=== PATIENT | female | born 1955 | race Caucasian/White ===

== ENCOUNTER 2017-02-12 17:10 | Emergency (ER) | payer MEDICARE ==
[~2017-02-12 17:10] MED LIST: THIAMINE 100 MG TAB PO SCH
[2017-02-12] MEDS ORDERED: SODIUM CHLORIDE 0.9% 1,000 ML IV STA (17:39)
[2017-02-12] MEDS ORDERED: SODIUM CHLORIDE 0.9% 500 ML IV STA (17:39)
--- NOTE | 2017-02-12 17:42 | ED ---
General Adult HPI - General Chief complaint: Alcohol Stated complaint: ANXIETY Source: patient, RN notes reviewed Mode of arrival: EMS Limitations: no limitations - History of Present Illness Initial comments: 61-year-old female history of anxiety, depression, COPD, and alcohol abuse presents with chief complaint of alcohol ingestion and generalized weakness. Patient also reports significant dyspnea over her drinking. She does not have sonali suicidal ideation, however she does states she wants to give up. She is tried on multiple attempts to obtain from alcohol. She has called 10-15 rehab facilities but her insurance does not pay for the first several days of rehab and she does not have money to pay for this. She would like to quit alcohol but has been unable to do so on her own. No hallucinations. She is complaining of some facial numbness which is bilateral. No other complaints. No chest pain or shortness of breath. No abdominal pain. No nausea vomiting or diarrhea. - Related Data Home Medications Medication Instructions Recorded Confirmed Albuterol Inhaler [Ventolin Hfa 2 puff INHALATION RT-Q6H PRN 02/12/17 02/12/17 Inhaler] Omeprazole 20 mg PO BID 02/12/17 02/12/17 Xanax Unknown Dose 1 tab PO ONCE 02/12/17 02/12/17 Allergies Allergy/AdvReac Type Severity Reaction Status Date / Time Penicillins Allergy Itching Verified 02/12/17 18:07 codeine AdvReac Nausea & Verified 02/12/17 18:07 Vomiting Review of Systems ROS Statement: Those systems with pertinent positive or pertinent negative responses have been documented in the HPI. ROS Other: All systems not noted in ROS Statement are negative. Past Medical History Past Medical History: COPD, Hypertension Additional Past Medical History / Comment(s): alcohol abuse, kidney stones History of Any Multi-Drug Resistant Organisms: None Reported Additional Past Surgical History / Comment(s): exp lap Past Psychological History: Anxiety, Depression Smoking Status: Current every day smoker Past Alcohol Use History: Abuse, Daily, Heavy Past Drug Use History: None Reported General Exam Limitations: no limitations General appearance: alert, in no apparent distress, appears intoxicated, anxious Head exam: Present: atraumatic, normocephalic Eye exam: Present: normal appearance, PERRL ENT exam: Present: mucous membranes dry Neck exam: Present: normal inspection. Absent: tenderness, meningismus Respiratory exam: Present: normal lung sounds bilaterally. Absent: respiratory distress, wheezes Cardiovascular Exam: Present: regular rate, normal rhythm GI/Abdominal exam: Present: soft. Absent: distended, tenderness Extremities exam: Present: normal inspection, normal capillary refill. Absent: pedal edema Neurological exam: Present: alert, CN II-XII intact, other (Patient has repetitive movements of her bilateral upper extremities and lips). Absent: motor sensory deficit Psychiatric exam: Present: depressed, anxious Skin exam: Present: warm, dry, intact. Absent: cyanosis, diaphoretic Course Vital Signs 02/12/17 02/12/17 02/12/17 17:14 19:36 21:12 Temperature 97.9 F 97.7 F Pulse Rate 88 99 100 Respiratory 20 19 19 Rate Blood Pressure 136/97 145/92 119/82 O2 Sat by Pulse 99 96 97 Oximetry 02/12/17 22:18 Temperature 98.1 F Pulse Rate 93 Respiratory 19 Rate Blood Pressure 105/82 O2 Sat by Pulse 95 Oximetry - Reevaluation(s) Reevaluation #1: 02/12/17 22:24 Patient is evaluated by psychiatry, no need for inpatient psychiatric treatment for alcohol abuse at this time. Medical Decision Making - Medical Decision Making 61-year-old female with history of alcohol abuse presenting with chief complaint of bilateral facial numbness and desire to abstain from alcohol. Blood alcohol level was 42 at the time of presentation. Urinalysis was positive for benzodiazepines which the patient does admit to taking too Xanax earlier in the day. After initial evaluation patient's family arrives and is very concerned with strange movements of the patient's hands and lips. This is new today. Patient is not on psychiatric medication, she only takes Prilosec at home. According to the patient's daughter these movements are new today and she is very concerned. Neurologic exam is nonfocal, cranial nerves intact, no ataxia. Head CT is obtained, is negative for acute intracranial process. Patient's neurologic examination remains unchanged while in the emergency department. She will be placed in observation for neurology consult. She does drink heavily daily, she is placed on Ativan by [employer] POSNM scale. Diagnosis: Choreiform movements, alcohol abuse. - Lab Data Result diagrams: 02/12/17 17:15 02/12/17 17:15 Lab Results 02/12/17 02/12/17 02/12/17 Range/Units 17:15 17:15 17:15 WBC 5.5 (3.8-10.6) k/uL RBC 4.60 (3.80-5.40) m/uL Hgb 14.2 (11.4-16.0) gm/dL Hct 43.1 (34.0-46.0) % MCV 93.7 (80.0-100.0) fL MCH 30.9 (25.0-35.0) pg MCHC 33.0 (31.0-37.0) g/dL RDW 16.5 H (11.5-15.5) % Plt Count 194 (150-450) k/uL Neutrophils % 58 % Lymphocytes % 31 % Monocytes % 7 % Eosinophils % 2 % Basophils % 1 % Neutrophils # 3.2 (1.3-7.7) k/uL Lymphocytes # 1.7 (1.0-4.8) k/uL Monocytes # 0.4 (0-1.0) k/uL Eosinophils # 0.1 (0-0.7) k/uL Basophils # 0.0 (0-0.2) k/uL Anisocytosis Slight Sodium 135 L (137-145) mmol/L Potassium 4.4 (3.5-5.1) mmol/L Chloride 107 (98-107) mmol/L Carbon Dioxide 16 L (22-30) mmol/L Anion Gap 12 mmol/L BUN 5 L (7-17) mg/dL Creatinine 0.60 (0.52-1.04) mg/dL Est GFR (MDRD) Af Amer >60 (>60 ml/min/1.73 sqM) Est GFR (MDRD) Non-Af >60 (>60 ml/min/1.73 sqM) Glucose 79 (74-99) mg/dL Calcium 8.6 (8.4-10.2) mg/dL Magnesium 1.8 (1.6-2.3) mg/dL Total Bilirubin 0.5 (0.2-1.3) mg/dL AST 33 (14-36) U/L ALT 34 (9-52) U/L Alkaline Phosphatase 114 (38-126) U/L Total Protein 6.4 (6.3-8.2) g/dL Albumin 3.3 L (3.5-5.0) g/dL Urine Color Colorless Urine Appearance Clear (Clear) Urine pH 5.0 (5.0-8.0) Ur Specific [place] 1.001 (1.001-1.035) Urine Protein Negative (Negative) Urine Glucose (UA) Negative (Negative) Urine Ketones Negative (Negative) Urine Blood Negative (Negative) Urine Nitrite Negative (Negative) Urine Bilirubin Negative (Negative) Urine Urobilinogen <2.0 (<2.0) mg/dL Ur Leukocyte Esterase Negative (Negative) Urine Opiates Screen Not Detected (NotDetected) Ur Oxycodone Screen Not Detected (NotDetected) Urine Methadone Screen Not Detected (NotDetected) Ur Propoxyphene Screen Not Detected (NotDetected) Ur Barbiturates Screen Not Detected (NotDetected) U Tricyclic Antidepress Not Detected (NotDetected) Ur Phencyclidine Scrn Not Detected (NotDetected) Ur Amphetamines Screen Not Detected (NotDetected) U Methamphetamines Scrn Not Detected (NotDetected) U Benzodiazepines Scrn Detected H (NotDetected) Urine Cocaine Screen Not Detected (NotDetected) U Marijuana (THC) Screen Not Detected (NotDetected) Serum Alcohol 42 mg/dL Disposition Clinical Impression: Choreiform movements Disposition: [facility] Condition: Good Referrals: Tootie Bacon DO [Primary Care Provider] - 1-2 days Decision to Admit Reason: Admit from EC Decision Date: 02/12/17 Decision Time: 21:21
[2017-02-12 17:52] LABS: Anisocytosis Slight; Basophils % (A) 1 %; CH 32.3; CHCM 34.7; Eosinophils # (A) 0.1 k/uL (0-0.7); Eosinophils % (A) 2 %; HCT 43.1 % (34.0-46.0); HDW 3.05; HGB 14.2 gm/dL (11.4-16.0); Luc # (Auto) 0.13; Luc % (Auto) 2; Lymphocytes # (A) 1.7 k/uL (1.0-4.8); Lymphocytes % (A) 31 %; MCH 30.9 pg (25.0-35.0); MCV 93.7 fL (80.0-100.0); Mean Platelet Volume 7.4; Monocytes # (A) 0.4 k/uL (0-1.0); Monocytes % (A) 7 %; Neutrophils # (A) 3.2 k/uL (1.3-7.7); Neutrophils % (A) 58 %; RDW 16.5 % (11.5-15.5); WBC 5.5 k/uL (3.8-10.6); WBC (Perox) 5.79
[2017-02-12 17:55] LABS: Appearance,Urine Clear (Clear); Bilirubin,Urine Negative (Negative); Glucose,Urine (UA) Negative (Negative); Ketones,Urine Negative (Negative); Leukocyte Esterase,Urine Negative (Negative); Nitrite,Urine Negative (Negative); Protein,Urine Negative (Negative); Specific Gravity,Urine 1.001 (1.001-1.035); UA Billing (MACRO vs. MICRO) CHEM; Urobilinogen,Urine <2.0 mg/dL (<2.0)
[2017-02-12 18:04] LABS: ALT 34 U/L (9-52); AST 33 U/L (14-36); Alcohol 42 mg/dL; Alkaline Phosphatase 114 U/L (38-126); Anion Gap 12 mmol/L; Blood Urea Nitrogen 5 mg/dL (7-17); Calcium 8.6 mg/dL (8.4-10.2); Carbon Dioxide 16 mmol/L (22-30); Chloride 107 mmol/L (98-107); Glucose 79 mg/dL (74-99); Magnesium 1.8 mg/dL (1.6-2.3); Non-African American GFR(MDRD) >60 (>60 ml/min/1.73 sqM); Potassium 4.4 mmol/L (3.5-5.1); Sodium 135 mmol/L (137-145); Total Bilirubin 0.5 mg/dL (0.2-1.3); Total Protein 6.4 g/dL (6.3-8.2)
[2017-02-12] MEDS ORDERED: LORazepam 2 MG/ML SYRINGE IV PRN ×3 (18:14)
[2017-02-12] MEDS ORDERED: THIAMINE 100 MG/ML 2 ML VIAL IM STA (18:14)
--- NOTE | 2017-02-12 21:33 | CT ---
EXAMINATION TYPE: CT brain wo con DATE OF EXAM: 02/12/2017 COMPARISON: NONE HISTORY: Altered mental status, facial numbness. CT DLP: 1719.9 mGycm. Automated Exposure Control for Dose Reduction was Utilized. TECHNIQUE: CT scan of the head is performed without contrast. FINDINGS: There is no acute intracranial hemorrhage, mass effect, or midline shift identified. The ventricles and sulci are symmetrically prominent, compatible with age-related volume loss. Scattered areas of hypoattenuation are seen within the subcortical white matter and within the right external capsule, likely on the basis of chronic microangiopathy. Yuki bullosa are incidentally noted within the middle nasal turbinate. The globes are intact and the visualized sinuses are clear. IMPRESSION: No acute intracranial hemorrhage, mass effect, or midline shift is seen.
[2017-02-12] MEDS ORDERED: ONDANSETRON 4 MG/2 ML VIAL IVP PRN (22:20)
[2017-02-12] MEDS ORDERED: ACETAMINOPHEN TAB 325 MG TAB PO PRN (22:20)
[2017-02-12] MEDS ORDERED: NALOXONE 0.4 MG/ML 1 ML VIAL IV PRN (22:20)
[2017-02-12] MEDS ORDERED: SODIUM CHLORIDE 0.9% 1,000 ML IV SCH (22:30)
[2017-02-12] MEDS ORDERED: KETOROLAC 30 MG/ML 1 ML VIAL IVP STA (23:27)
--- NOTE | 2017-02-12 23:33 | ED ---
Medical Decision Making - Lab Data Result diagrams: 02/12/17 17:15 02/12/17 17:15 Lab Results 02/12/17 02/12/17 02/12/17 Range/Units 17:15 17:15 17:15 WBC 5.5 (3.8-10.6) k/uL RBC 4.60 (3.80-5.40) m/uL Hgb 14.2 (11.4-16.0) gm/dL Hct 43.1 (34.0-46.0) % MCV 93.7 (80.0-100.0) fL MCH 30.9 (25.0-35.0) pg MCHC 33.0 (31.0-37.0) g/dL RDW 16.5 H (11.5-15.5) % Plt Count 194 (150-450) k/uL Neutrophils % 58 % Lymphocytes % 31 % Monocytes % 7 % Eosinophils % 2 % Basophils % 1 % Neutrophils # 3.2 (1.3-7.7) k/uL Lymphocytes # 1.7 (1.0-4.8) k/uL Monocytes # 0.4 (0-1.0) k/uL Eosinophils # 0.1 (0-0.7) k/uL Basophils # 0.0 (0-0.2) k/uL Anisocytosis Slight Sodium 135 L (137-145) mmol/L Potassium 4.4 (3.5-5.1) mmol/L Chloride 107 (98-107) mmol/L Carbon Dioxide 16 L (22-30) mmol/L Anion Gap 12 mmol/L BUN 5 L (7-17) mg/dL Creatinine 0.60 (0.52-1.04) mg/dL Est GFR (MDRD) Af Amer >60 (>60 ml/min/1.73 sqM) Est GFR (MDRD) Non-Af >60 (>60 ml/min/1.73 sqM) Glucose 79 (74-99) mg/dL Calcium 8.6 (8.4-10.2) mg/dL Magnesium 1.8 (1.6-2.3) mg/dL Total Bilirubin 0.5 (0.2-1.3) mg/dL AST 33 (14-36) U/L ALT 34 (9-52) U/L Alkaline Phosphatase 114 (38-126) U/L Total Protein 6.4 (6.3-8.2) g/dL Albumin 3.3 L (3.5-5.0) g/dL Urine Color Colorless Urine Appearance Clear (Clear) Urine pH 5.0 (5.0-8.0) Ur Specific [place] 1.001 (1.001-1.035) Urine Protein Negative (Negative) Urine Glucose (UA) Negative (Negative) Urine Ketones Negative (Negative) Urine Blood Negative (Negative) Urine Nitrite Negative (Negative) Urine Bilirubin Negative (Negative) Urine Urobilinogen <2.0 (<2.0) mg/dL Ur Leukocyte Esterase Negative (Negative) Urine Opiates Screen Not Detected (NotDetected) Ur Oxycodone Screen Not Detected (NotDetected) Urine Methadone Screen Not Detected (NotDetected) Ur Propoxyphene Screen Not Detected (NotDetected) Ur Barbiturates Screen Not Detected (NotDetected) U Tricyclic Antidepress Not Detected (NotDetected) Ur Phencyclidine Scrn Not Detected (NotDetected) Ur Amphetamines Screen Not Detected (NotDetected) U Methamphetamines Scrn Not Detected (NotDetected) U Benzodiazepines Scrn Detected H (NotDetected) Urine Cocaine Screen Not Detected (NotDetected) U Marijuana (THC) Screen Not Detected (NotDetected) Serum Alcohol 42 mg/dL Disposition Clinical Impression: Choreiform movements Disposition: HOME SELF-CARE Condition: Good Instructions: Alcohol Withdrawal (ED) Additional Instructions: Return to the Emergency department with worsening symptoms. Referrals: Tootie Bacon DO [Primary Care Provider] - 1-2 days Dagmar Hensley MD [STAFF PHYSICIAN] - 1-2 days
[2017-02-12 23:49] VITALS: BP 142/58; PULSE 87; RESP 16; TEMP 97.5
== END 2017-02-12 23:48 | disposition home or self-care (01) ==
LOC: EC 17:10 → 4MS4W 22:20 → UNDOADMOB 22:20 → EC 23:48
DX: R25.8 Other abnormal involuntary movements (principal); F10.10 Alcohol abuse, uncomplicated; F41.9 Anxiety disorder, unspecified; F17.200 Nicotine dependence, unspecified, uncomplicated; Z88.0 Allergy status to penicillin; Z88.5 Allergy status to narcotic agent; Z79.899 Other long term (current) drug therapy
CPT/HCPCS: 99285; 96374; 96372; 96361 ×6; 36415; 80053; 83735; 85025; 81003; 80306; 80320; 70450; J3411; J1885